=== PATIENT | female | born 1960 | race Caucasian/White ===

== ENCOUNTER 2017-04-23 23:19 | Emergency (ER) | payer BC ==
[2017-04-24 00:55] VITALS: BP 118/67
--- NOTE | 2017-04-24 07:44 | RAD ---
Indication: RIGHT ankle pain and swelling. Possible gout. Comparison: No relevant prior exams available on the [facility] for comparison. Technique: AP, mortise, and lateral views RIGHT ankle. Report: Normal articular alignment and preserved talocrural, subtalar, and transverse tarsal joint spaces. No suggestion of talocrural joint effusion. No significant osteophytosis or osseous erosions evident. Negative for fracture, osteochondral lesion, or stigmata of avascular necrosis. Nonfocal soft tissue swelling. Small phlebolith at the anterior distal lower leg. No suspicious soft tissue calcifications evident. IMPRESSION: Nonspecific soft tissue swelling.
--- NOTE | 2017-05-16 21:38 | ED ---
Osorio Tariq Nilda, scribed for Esau Paul MD on 04/24/17 at 0039 . Lower Extremity - HPI Summary HPI Summary: This patient is a 56 year old F presenting to [facility] accompanied by with a chief complaint of sharp right foot and ankle pain and swelling since this evening. 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 Symptoms aggravated by walking and alleviated by rest. Patient denies numbness and weakness in right foot. - History of Current Complaint Chief Complaint: EDExtremityLower Stated Complaint: RT ANKLE PAIN/SWELLING Time Seen by Provider: 04/24/17 00:10 Hx Obtained From: Patient Hx Last Menstrual Period: Currently menstruating Mechanism Of Injury: Other - job requires overuse Onset/Duration: Still Present Severity Currently: Mild Pain Intensity: 0 Pain Scale Used: 0-10 Numeric Timing: Constant Location: Is Discrete @ - right ankle and right foot pain Character Of Pain: Sharp Associated Signs And Symptoms: Positive: Swelling Aggravating Factor(s): Ambulation Alleviating Factor(s): Rest - Allergies/Home Medications Allergies/Adverse Reactions: Allergies Allergy/AdvReac Type Severity Reaction Status Date / Time Latex Allergy Unknown Verified 12/07/15 10:55 Reaction Details Yeast Allergy Unknown Verified 12/07/15 10:55 Reaction Details PMH/Surg Hx/FS Hx/Imm Hx Endocrine/Hematology History: Denies: Hx Diabetes, Hx Thyroid Disease Cardiovascular History: Denies: Hx Hypertension, Other Cardiovascular Problems/Disorders Respiratory History: Denies: Hx Asthma, Hx Chronic Obstructive Pulmonary Disease (COPD) GI History: Denies: Hx Ulcer - Cancer History Hx Chemotherapy: No Hx Radiation Therapy: No Infectious Disease History: No Infectious Disease History: Denies: Hx Hepatitis, Hx Human Immunodeficiency Virus (HIV), Traveled Outside the [place] in Last 30 Days - Family History Known Family History: Positive: Diabetes Negative: Hypertension - Social History Occupation: Employed Full-time Lives: With Family Alcohol Use: Rare Hx Substance Use: No Substance Use Type: Reports: None Hx Tobacco Use: Yes Smoking Status (MU): Former Smoker Review of Systems Positive: Other - right foot and ankle pain and swelling Negative: Weakness, Numbness All Other Systems Reviewed And Are Negative: Yes Physical Exam - Summary Physical Exam Summary: General: well-appearing, no pain distress, obese Skin: warm, color reflects adequate perfusion, dry Head: normal Eyes: EOMI, FRANCOIS ENT: normal Neck: supple, nontender Respiratory: CTA, breath sounds present Cardiovascular: RRR Abdomen: soft, nontender Bowel: present Musculoskeletal: strength/ROM intact, no warmth in right ankle and foot, good pulses, no plantar tenderness, minimal discomfort of dorsal flexion of the foot at tendons Neurological: normal, sensory/motor intact, A&O x3 Psychological: affect/mood appropriate Triage Information Reviewed: Yes Vital Signs On Initial Exam: Initial Vitals Temp Pulse Resp BP Pulse Ox 98.1 F 66 18 112/63 98 04/23/17 23:30 04/23/17 23:30 04/23/17 23:30 04/23/17 23:30 04/23/17 23:30 Vital Signs Reviewed: Yes - Gilman Coma Scale Coma Scale Total: 15 Diagnostics - Vital Signs Vital Signs Temp Pulse Resp BP Pulse Ox 04/23/17 23:30 98.1 F 66 18 112/63 98 - Laboratory Lab Statement: Any lab studies that have been ordered have been reviewed, and results considered in the medical decision making process. Lower Extremity Course/Dx - Course Course Of Treatment: tenderness over tendon area in top of foot. Tx symptomatically. Off load. RICE. - Diagnoses Provider Diagnoses: Tendonitis Discharge - Discharge Plan Condition: Good Disposition: HOME Prescriptions: Naproxen [Naproxen 500 mg] 500 mg PO BID #10 tab Patient Education Materials: Tendinitis (ED) Forms: *Work Release Referrals: Xochilt Livingston MD [Primary Care Provider] - Additional Instructions: Ice, elevate, Raul wrap for comfort. Stretching exercises. Return if worse, new symptoms or other concerns as discussed. The documentation as recorded by the Osorio alvarez Nilda accurately reflects the service I personally performed and the decisions made by , Esau Paul MD.
== END 2017-04-24 00:55 | disposition home or self-care (01) ==
LOC: ED 23:19
DX: M77.51 Other enthesopathy of right foot and ankle (principal); Z87.891 Personal history of nicotine dependence
CPT/HCPCS: 99282

== ENCOUNTER 2017-08-06 18:03 | Emergency (ER) | payer BC ==
--- OUTSIDE RECORDS SUMMARY | 2017-08-06 18:16 | XMS REPORT ---
:1960 External Reference #:[id number] Author Organization [facility] Address [address] [place] [address] Phone [phone] Care Team Providers Name Role Phone Xochilt Livingston M.D. 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 Active Onset: 06/22/2014 Acute gingivitis Cosmo Mcginnis M.D. 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 Sulfate/Polymyxin 2018 nit/ML-% drops in Miguel, B Sulfate left eye BALANCE CLERK 3 times per day until symptoms resolve for 24 hours. 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 10/12-2015 15. October between to work on 10/18/14 Cyclobenzaprine 10/12/ Hx Tablets 10mg 30tab 1 by SUSHIL Prabhakar 2014 - s mouth M.D. 01/03/ three 2015 times a day as needed Prednisone 10/12/ Hx Tablets 20mg 10tab 1 by Ayden Woodall 2014 - s mouth M.D. 01/03/ twice a 2015 day for 5 days Ceftin 06/23/ Hx Tablets 250mg 10tab 1 by Cosmo Longo 2014 - s mouth Ras, 07/02/ twice a M.D. 2014 day For 5 Days Work Excuse 06/23/ Hx unable to Cosmo Longo 2014 - work can Ras, 07/02/ return M.D. 2014 on 06/26/14 Penvk 06/22/ Hx 500 10uni use twice Cosmo Longo 2015 - ts a day x 5 Breiman, 06/23/ days M.D. 2014 Cyclobenzaprine 06/11/ Hx Tablets 10mg 30tab 1 by SUSHIL Prabhakar 2013 - s mouth M.D. 06/22/ three 2014 times a day as needed Hydrocodone-Aceta 06/11/ Hx Tablets 5-325mg 30tab 1 every 6 bud Prabhakar 2013 - s hours as M.D. 06/22/ needed 2014 Amoxicillin 06/07/ Hx Tablets 875mg 20tab 1 by 461.0 Kavitha 2013 - s mouth Dion, BALANCE CLERK 06/17/ twice a 2014 day x 10 days Work Excuse 06/02/ Hx seen in Adela 2013 Dilan Flores, 06/05/ office , Afnp-C 2013 will return to work 06/06/14 Tamiflu 05/24/ Hx Capsules 75mg 10cap 1 tab by 786.2 Iveth 2013 - s mouth Perry, 06/07/ twice a FAMILY MANAGER 2014 day x 5 days No Active 05/05/ Hx Unknown Medications 2012 - 2013 Dilotab 2- Sinus / Hx 325mgS/5mg 2 tabs Unknown And Cold Relief 0000 - S every 4 (Non Drowsy) 01/03/ hours as 2015 needed for s/s of cold Painaid( Apap, / Hx 110mgS/162 2 tabs Unknown Asa, Caffeine, 0000 - mgS/32.4MG every 6 Salicylamide) 01/03/ S... hours as 2015 needed for s/s of cold Naproxen / Hx Tablets 500mg 1 by Unknown 0000 - mouth 01/03/ twice a 2015 day as needed pain take with food Magnesium Citrate / Hx Tablets 100mg 1 by Unknown 0000 - mouth 01/03/ three 2016 times daily Vital Signs Date Vital Result Comment 08/01/2017 BP Systolic 108 mmHg BP Diastolic 60 mmHg Heart Rate 72 /min Body Temperature 98.5 F Respiratory Rate 16 /min Height 64 inches 5'4" Weight 223.12 lb BMI (Body Mass Index) 38.3 kg/m2 01/29/2017 BP Systolic 100 mmHg BP Diastolic 60 mmHg Heart Rate 66 /min Body Temperature 97.9 F Respiratory Rate 16 /min Height 64 inches 5'4" Weight 208.00 lb BMI (Body Mass Index) 35.7 kg/m2 01/04/2016 BP Systolic 120 mmHg BP Diastolic 80 mmHg Heart Rate 72 /min Body Temperature 97.7 F Respiratory Rate 16 /min Height 63.5 inches 5'3.50" Weight 210.00 lb BMI (Body Mass Index) 36.6 kg/m2 10/13/2014 BP Systolic 126 mmHg BP Diastolic 74 mmHg Heart Rate 64 /min Body Temperature 98.7 F Respiratory Rate 18 /min Height 63.5 inches 5'3.50" Weight 205.00 lb BMI (Body Mass Index) 35.7 kg/m2 07/02/2014 BP Systolic 100 mmHg BP Diastolic 60 mmHg Heart Rate 64 /min Body Temperature 97.7 F Height 63.5 inches 5'3.50" Weight 205.00 lb BMI (Body Mass Index) 35.7 kg/m2 06/22/2014 BP Systolic 126 mmHg BP Diastolic 80 mmHg Body Temperature 97.8 F Respiratory Rate 18 /min Height 63.5 inches 5'3.50" Weight 209.00 lb BMI (Body Mass Index) 36.4 kg/m2 06/12/2014 BP Systolic 124 mmHg BP Diastolic 70 mmHg Heart Rate 80 /min Body Temperature 98.3 F Respiratory Rate 18 /min Height 63.5 inches 5'3.50" Weight 203.00 lb BMI (Body Mass Index) 35.4 kg/m2 06/07/2014 BP Systolic 130 mmHg BP Diastolic 78 mmHg Heart Rate 66 /min Body Temperature 97.6 F Respiratory Rate 16 /min O2 % BldC Oximetry 98 % R/A 06/02/2014 BP Systolic 110 mmHg BP Diastolic 80 mmHg Heart Rate 80 /min Respiratory Rate 18 /min Height 63.5 inches 5'3.50" Weight 203.00 lb BMI (Body Mass Index) 35.4 kg/m2 05/24/2014 BP Systolic 114 mmHg BP Diastolic 68 mmHg Heart Rate 76 /min Body Temperature 99.9 F Respiratory Rate 18 /min O2 % BldC Oximetry 98 % Height 63.5 inches 5'3.50" Weight 206.00 lb BMI (Body Mass Index) 35.9 kg/m2 12/02/2013 BP Systolic 104 mmHg BP Diastolic 60 mmHg Heart Rate 68 /min Body Temperature 97.7 F Respiratory Rate 16 /min Height 63.5 inches 5'3.50" Weight 190.00 lb BMI (Body Mass Index) 33.1 kg/m2 05/05/2013 BP Systolic 100 mmHg BP Diastolic 62 mmHg Heart Rate 70 /min Body Temperature 96.6 F Height 63.5 inches 5'3.50" Weight 181.12 lb BMI (Body Mass Index) 31.6 kg/m2 Results Test Date Test Result H/L Range Note Laboratory test 04/05/2017 Surgical Interface SEE RESULT BELOW 1, 2 finding Order Ua - Micro (Fma) 01/29/2017 Appearance clear Color yellow Glucose, Urine (Fma/CMC/CTX) neg Bilirubin neg Ketones neg SP Grav >1.030 Blood moderate PH 5.0 Protein neg Urobil 0.2 Nitrite neg Leukocytes (Fma/CMC/Centrex) neg Hyaline - /Lpf Granular - /Lpf WBC (Fma,Centrex) 0-7 RBC 10-12 Mucus - /Lpf Epith rare /Lpf Bacteria - /Hpf Amorphous - /Lpf Crystals, Fluid (Fma/CMC/CTX) - Z#Comments - Complete Blood Count 01/29/2017 WBC 4.3 x10^3/UL 3.6-9.6 RBC 4.56 x10^6/UL 3.90-5.70 HGB 13.9 g/dL 12.1-17.2 HCT 41 % 36-50 MCV 90.0 fL 82.2-97.4 MCH 30.4 pg 27.6-33.3 MCHC 33.9 g/dL 33.0-35.5 RDW 15.0 % High 11.6-13.7 PLT 272 x10^3/UL 150-400 MPV 7.7 fL 7.4-10.4 Gran # 3.1 x10^3/UL 1.5-7.2 Lymph# 1.0 x10^3/UL 0.7-4.9 [place]# 0.2 x10^3/UL 0.1-0.9 Gran % 68.7 % 42.2-75.2 Lymph % 25.7 % 20.5-51.1 [place]% 5.6 % 1.7-9.3 Comprehensive Metabolic Prof 01/29/2017 Sodium 139 mEq/L 134-149 Potassium 4.4 mEq/L 3.6-5.5 Chloride 103 mEq/L 94-112 Carbon Dioxide 24 mEq/L 21-32 Glucose 102 mg/dL 70-105 BUN 18 mg/dL 6-26 Creatinine 0.7 mg/dL 0.6-1.4 BUN/Creat Ratio 25.7 CALC 8.0-36.0 Calcium 9.0 mg/dL 8.6-10.2 Total Protein 6.4 g/dL 6.4-8.3 Albumin 4.4 g/dL 3.8-5.5 Globulin 2.0 g/dL 2.0-4.8 A/G Ratio 2.2 CALC 0.6-2.3 Alk. Phosphatase 83 U/L 30-110 Alt (SGPT) 12 U/L 7-35 Ast (Sgot) 14 U/L 5-34 Total Bilirubin 0.7 mg/dL 0.2-1.3 GFR Non- >60 ml/min/1.73m^ >=60 GFR >60 ml/min/1.73m^ >=60 Lipid Profile 01/29/2017 Cholesterol 213 mg/dL High 120-200 Triglycerides 73 mg/dL 30-200 HDL Cholesterol 80 mg/dL 30-85 LDL (Calculated) 118 CALC 0-129 VLDL Cholesterol 15 mg/dL 0-50 HDL Risk Factor 2.7 CALC 0.0-4.4 Laboratory test 01/29/2017 TSH 1.06 mIU/L 0.50-6.00 finding Laboratory test 07/16/2016 Clotest SEE RESULT BELOW 3 finding Laboratory test 07/16/2016 Surgical Interface SEE RESULT BELOW 4 finding Order Ua - Micro (Fma) 01/04/2016 Appearance clear Color yellow Glucose, Urine (Fma/CMC/CTX) neg Bilirubin neg Ketones neg SP Grav 1.020 Blood neg PH 6.0 Protein neg Urobil 0.2 Nitrite neg Leukocytes (Fma/CMC/Centrex) neg Hyaline - /Lpf Granular - /Lpf WBC (Fma,Centrex) 0-2 RBC 0-1 Mucus (Fma/CBC/Centrex) - /Lpf Epith occ /Lpf Bacteria rare /Hpf Amorphous (Fma/CMC/Centrex) - /Lpf Crystals, Fluid (Fma/CMC/CTX) - Z#Comments - Laboratory test 01/04/2016 Urine Culture And SEE RESULT 5 finding Sensitivities BELOW CBC Auto Diff 06/09/2014 White Blood Count 11.0 10^3/uL High 4.8-10.8 Red Blood Count 4.43 10^6/uL 4.0-5.4 Hemoglobin 13.7 g/dL 12.0-16.0 Hematocrit 42 % 35-47 Mean Corpuscular Volume 94 fL 80-97 Mean Corpuscular Hemoglobin 31 pg 27-31 Mean Corpuscular HGB Conc 33 g/dL 31-36 Red Cell Distribution Width 14 % 10.5-15 Platelet Count 276 10^3/uL 150-450 Mean Platelet Volume 10 um3 7.4-10.4 Abs Neutrophils 8.8 10^3/uL High 1.5-7.7 Abs Lymphocytes 1.5 10^3/uL 1.0-4.8 Abs Monocytes 0.6 10^3/uL 0-0.8 Abs Eosinophils 0.1 10^3/uL 0-0.6 Abs Basophils 0.1 10^3/uL 0-0.2 Abs Nucleated RBC 0 10^3/uL Granulocyte % 80.0 % 38-83 Lymphocyte % 13.4 % Low 25-47 Monocyte % 5.0 % 1-9 Eosinophil % 0.9 % 0-6 Basophil % 0.7 % 0-2 Nucleated Red Blood Cells % 0 Laboratory test finding 06/09/2014 Lactic Acid 1.0 mmol/L 0.5-2.2 Comp Metabolic Panel 06/09/2014 Sodium 134 mmol/L 133-145 Potassium 4.3 mmol/L 3.5-5.0 Chloride 103 mmol/L 101-111 Co2 Carbon Dioxide 25 mmol/L 22-32 Anion Gap 6 mmol/L 2-11 Glucose 110 mg/dL High 70-100 Blood Urea Nitrogen 12 mg/dL 6-24 Creatinine 0.60 mg/dL 0.51-0.95 BUN/Creatinine Ratio 20.0 8-20 Calcium 8.9 mg/dL 8.6-10.3 Total Protein 6.6 g/dL 6.4-8.9 Albumin 3.8 g/dL 3.2-5.2 Globulin 2.8 g/dL 2-4 Albumin/Globulin Ratio 1.4 1-3 Total Bilirubin 0.50 mg/dL 0.2-1.0 Alkaline Phosphatase 54 U/L 34-104 Alt 11 U/L 7-52 Ast 15 U/L 13-39 Egfr Non- 104.6 >60 Egfr 134.5 >60 6 Inr/Protime 06/09/2014 Inr 0.93 0.85-1.06 Laboratory test finding 06/09/2014 Activated Partial 29.9 seconds 24.0- 36.1 Thrombo Time Influenza A&B-[facility] 05/24/2014 Influenza A pos Influenza B neg CBC Electronic ([facility]) 05/05/2013 WBC 6.5 3.6-9.6 RBC 4.45 3.90-5.70 Hemoglobin (a/CMC/CTX) 14.0 g/dL 12.1 - 17.2 Hematocrit (a/CMC/CTX) 42.4 % 36.1 - 50.3 Platelets 298 10^3/ul 150-400 Lymph% 24.2 20.5-51.1 Mixed% 3.4 Neutrophils % 72.4 Mean Corpuscular Vol 95 82.2-97.4 Mean Corpuscular Hemoglobin 31.6 27.6-33.3 Mean Corpuscular Hemo Concen 33.1 32.0-36.0 RDW 12.6 11.6-13.7 Mean Platelet Volume 7.9 6.5-11.0 Ua - Micro (Fma) 05/05/2013 Appearance clear Color yellow Glucose 100 mg/dL Bilirubin neg Ketones neg SP Grav 1.025 Blood large menses PH 6.5 Protein ssa neg Urobil 1.0 Nitrite neg Leukocytes (Fma/CMC/Centrex) small Hyaline - /Lpf Granular - /Lpf WBC (Fma,Centrex) 20-25 RBC 1-4 Mucus - /Lpf Epith mod amt /Lpf Bacteria 2++ /Hpf Amorphous - /Lpf Crystals, Fluid (Fma/CMC/CTX) - Z#Comments see comments 7 Laboratory test finding 05/05/2013 Vitamin D,1,25 46.3 pg/mL 10.0-75.0 Dihydro Comprehensive Metabolic Prof 05/05/2013 Albumin 4.7 g/dL 3.8-5.5 Alk. Phos. 72 U/L 30-110 Alt (SGPT) 12 U/L 7-35 Ast (Sgot) 17 U/L 5-34 BUN 16 mg/dL 6-26 Calcium 10.2 mg/dL 8.6-10.2 Chloride 104 mEq/L 94-112 Creatinine 0.8 mg/dL 0.6-1.4 Carbon Dioxide 26 mEq/L 21-32 Glucose 94 mg/dL 70-105 Sodium 146 mEq/L 134-149 Total Bilirubin 1.0 mg/dL 0.2-1.3 Total Protein 7.3 g/dL 6.3-8.1 Potassium 4.5 mEq/L 3.6-5.5 Globulin 2.6 g/dL 2.0-4.8 A/G Ratio 1.8 Calc 0.6-2.3 BUN/Creat Ratio 19.8 Calc 8.0-36.0 Lipid Profile 05/05/2013 Cholesterol 227 mg/dL High 120-200 HDL 85 mg/dL 30-85 Triglycerides 68 mg/dL 30-200 HDL Risk Factor 2.7 CALC 0.0-4.4 LDL (Calculated) 128 CALC 0-129 VLDL (Calculated) 14 mg/dL 0-50 1 [id number] 2 SEE RESULT BELOW Name: CYNTHIA AZAR : [address]: Navin Bah MD Acct: [id number] Unit: [id number] AGE: 56 Location: [facility] Re04/05/17 SEX: F Status: DEP REF SPEC: [id number] TANA: 04/05/[address] [facility] [address]: Navin Bah MD REQ: [id number] RECD: 04/05/17 STATUS: KALEE LINTON DR: Xochilt Livingston MD _ ORDERED: LEVEL 4 COMMENTS: [id number] FINAL DIAGNOSIS Gastroesophageal junction, biopsy: -- Gastric Cardia-type mucosa with mild chronic inflammation and reactive glandular epithelial changes. -- No goblet cell/intestinal metaplasia or dysplasia identified. -- No squamous component identified. CLINICAL HISTORY No history given POST-OPERATIVE DIAGNOSIS Esophagus - Grade B/C erosive esophagitis, nodule at gastroesophageal junction, biopsied; stomach and duodenum - normal. Patient refusing proton pump inhibitor GROSS DESCRIPTION The specimen is received in formalin labeled, Biopsy EG Junction, and consists of a 0.4 x 0.3 x 0.2 cm eddy-white to pink irregular soft tissue fragment which is submitted entirely in one cassette. Signed (signature on file) Mario Perez MD 1155 END OF REPORT * ML=Testing performed at Main Lab DEPARTMENT OF PATHOLOGY, [address] [place] [address] Mario Perez M.D. Director [facility] # [id number] 3 SEE RESULT BELOW Name: CYNTHIA AZAR : [address]: Navin Bah MD Acct: [id number] Unit: [id number] AGE: 55 Location: ENDO Re07/16/16 SEX: F Status: REG REF SPEC: [id number] TANA: 07/16/16-[address] [facility] [address]: Navin Bah MD REQ: [id number] RECD: 07/16/16133 STATUS: JACKIE LINTON DR: Xochilt Livingston MD _ SOURCE: GAS ANTRUM SPDESC: ORDERED: Clotest Procedure Result Reported Site Clotest Final 07/17/16- 801 ML Clotest Negative * ML - MAIN LAB ([facility]) . END OF REPORT * ML=Testing performed at Main Lab DEPARTMENT OF PATHOLOGY, [address] [place] [address] Mario Perez M.D. Director [facility] # [id number] 4 SEE RESULT BELOW Name: NEREIDA AZAROINETTE : [address]: Navin Bah MD Acct: [id number] Unit: [id number] AGE: 55 Location: ENDO Re07/16/16 SEX: F Status: DEP REF SPEC: [id number] TANA: 07/16/169475 [facility] DR: Navin Bah MD REQ: [id number] RECD: 07/16/16 STATUS: KALEE LINTON DR: Xochilt Livingston MD _ ORDERED: LEVEL IV/2 FINAL DIAGNOSIS 1. Small bowel, duodenum, biopsy: -- Small bowel mucosa with reactive foveolar hyperplasia and normal villous architecture. -- No infectious agents or viral pathologic changes identified. 2. Esophagus, biopsies: -- Superficial squamous mucosa with mild nonspecific reactive changes. -- Specific features of active reflux esophagitis or not seen. -- No glandular component is identified. CLINICAL HISTORY No history given POST-OPERATIVE DIAGNOSIS Esophagus - rings - ? erosive esophagitis; hiatal hernia, Grade C erosive esophagitis; stomach - normal, biopsied; duodenum - duodenitis, biopsied. Colonoscopy to splenic flexure - severe diverticulosis, severe angulation, secondary adhesions. Start proton pump inhibitor GROSS DESCRIPTION 1. The specimen is received in formalin labeled, Duodenal Biopsies, and consists of a 0.4 x 0.2 x 0.2 cm speckled eddy-red irregular to polypoid soft tissue fragment, which is entirely submitted in one cassette. 2. The specimen is received in formalin labeled, Esophagus Biopsies, and consists of two white-pink irregular to polypoid soft tissue fragments averaging 0.4 x 0.3 x 0.2 cm, which are entirely submitted in one cassette. Signed (signature on file) Mario Perez MD 1242 END OF REPORT * ML=Testing performed at Main Lab DEPARTMENT OF PATHOLOGY, [address] [place] [address] Mario Perez M.D. Director [facility] # [id number] 5 SEE RESULT BELOW Name: CYNTHIA AZAR : [address]: Toro Keane MD Acct: [id number] Unit: [id number] AGE: 55 Location: [facility] Re01/04/16 SEX: F Status: REG REF SPEC: [id number] TANA: 01/04/16-[address] [facility] [address]: Toro Keane MD REQ: [id number] RECD: 01/04/16 STATUS: COMP _ SOURCE: URINE SPDESC: ORDERED: Urine Culture COMMENTS: [id number] 1 cohn urine vacutainer Procedure Result Reported Site Urine Culture Final 01/06/16- 09 ML No Growth (<1,000 CFU/mL) * ML - MAIN LAB ([facility]) . END OF REPORT * ML=Testing performed at Main Lab DEPARTMENT OF PATHOLOGY, [address] [place] [address] Mario Perez M.D. Director [facility] # [id number] 6 Because ethnic data is not always readily available, this report includes an eGFR for both -Americans and non- Americans. The National Kidney Disease Education Program (NKDEP) does not endorse the use of the MDRD equation for patients that are not between the ages of 18 and 70, are , have extremes of body size, muscle mass, or nutritional status, or are non- or non-. According to the National Kidney Foundation, irrespective of diagnosis, the stage of the disease is based on the level of kidney function: Stage Description GFR(mL/min/1.73 m(2)) 1 Kidney damage with normal or decreased GFR 90 2 Kidney damage with mild decrease in GFR 60-89 3 Moderate decrease in GFR 30-59 4 Severe decrease in GFR 15-29 5 Kidney failure <15 (or dialysis) 7 not a clean catch Procedures Date CPT Code Description Status 07/16/2016 Colonoscopy Completed 06/06/2016 Mammogram Completed 06/07/2014 69340 Pulse Oximetry Completed 06/02/2013 Colonoscopy Completed Encounters Type Date Location Provider CPT E/M Dx Office Visit 01/29/2017 9:20a [facility] Xochilt Livingston M.D. 58514 Z00.00 C54.1 Z15.09 Z12.31 R31.29 Office Visit 01/04/2016 1:50p [facility] Toro Keane M.D. 50538 R31.2 Office Visit 10/13/2014 3:00p [facility] Office Ayden Woodall M.D. 50457 724.2 Office Visit 07/02/2014 10:00a [facility] Ayden Woodall M.D. 65761 487.8 Office Visit 06/22/2014 1:10p [facility] Office Cosmo Mcginnis M.D. 63717 523.01 Office Visit 06/12/2014 10:15a [place] [address] 724.2 Office Visit 06/07/2014 2:30p [facility] [place] [address] 461.0 Office Visit 06/02/2014 6:45p Main Office Jessica Gusman-C 02701 487.8 Office Visit 05/24/2014 1:15p [facility] LEANDRA Trejo 14010 786.2 465.9 Office Visit 05/05/2013 9:00a [facility] Office Ayden Woodall M.D. 23325 V70.0 791.7 Plan of Care 08/01/2017 - Liliane Rivera, NPH10.9 Unspecified conjunctivitisNew Medication :Trimethoprim Sulfate/Polymyxin B Sulfate 71713-6.1 Unit/ML-%Comments:Call [facility]IRA if condition changes/worsens in any way
--- OUTSIDE RECORDS SUMMARY | 2017-08-06 18:16 | XMS REPORT ---
:1960 External Reference #:[id number] Author Organization [facility] Address [address] [place] [address] Phone [phone] Care Team Providers Name Role Phone Xochilt Livingston M.D. 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 Sulfate/Polymyxin 2018 nit/ML-% drops in Miguel, Alexandra Sulfate left eye REFERRAL AND INFORMATION AIDE 3 times per day until symptoms resolve for 24 hours. 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 10/12-2015 to work on 10/18/14 Cyclobenzaprine 10/12/ Hx [...] 2014 day For 5 Days Work Excuse Hx unable to Cosmo Longo 2014 - [...] by 461.0 Kavitha 2013 - s mouth CRISPIN Ashley 06/17/ twice a 2014 day x 10 days Work Excuse 06/02/ Hx seen in Adela 2014 - this Tusharidterri, 06/05/ office , Afnp-C 2013 will return to work 06/06/14 Tamiflu 05/24/ Hx Capsules 75mg 10cap 1 tab by 786.2 Iveth 2013 - s mouth Perry, 06/07/ twice a [employer] SUPER[employer] 2013 day x 5 days No Active 05/05/ [...] Unknown 0000 - mouth 01/03/ twice a 2016 day as needed pain take with food Magnesium Citrate / Hx Tablets 100mg 1 by Unknown 0000 - mouth 01/03/ three 2016 times daily Vital Signs Date Vital Result Comment 08/06/2017 BP Systolic 96 mmHg BP Diastolic 60 mmHg Heart Rate 64 /min Body Temperature 98.4 F Weight 223.50 lb 08/01/2017 BP Systolic 108 mmHg BP Diastolic [...] 3.1 x10^3/UL 1.5-7.2 Lymph# 1.0 x10^3/UL 0.7-4.9 [place]# 0.2 x10^3/UL 0.1-0.9 Gran % 68.7 % 42.2-75.2 Lymph % 25.7 % 20.5-51.1 [place]% 5.6 % 1.7-9.3 Comprehensive Metabolic Prof 01/29/2017 [...] 29.9 seconds 24.0- 36.1 Thrombo Time Influenza A&B-fma 05/24/2014 Influenza A pos Influenza B neg CBC Electronic (Fma) 05/05/2013 WBC 6.5 3.6-9.6 RBC 4.45 3.90-5.70 Hemoglobin (Fma/CMC/CTX) 14.0 g/dL 12.1 - 17.2 Hematocrit (Fma/CMC/CTX) 42.4 % 36.1 - 50.3 Platelets 298 [...] Hyaline - /Lpf Granular - /Lpf WBC (a,Centrex) 20-25 RBC 1-4 Mucus - /Lpf Epith [...] 0-129 VLDL (Calculated) 14 mg/dL 0-50 1 [id number] 2 SEE RESULT BELOW Name: CYNTHIA AZAR : [address]: Navin Bah MD Acct: [id number] Unit: [id number] AGE: 56 Location: END[facility] Re04/05/17 SEX: F Status: DEP REF SPEC: [id number] TANA: 04/05/1736 [facility] DR: Navin Bah MD REQ: [id number] RECD: 04/05/17 STATUS: KALEE LINTON DR: Xochilt Livingston MD _ ORDERED: LEVEL 4 COMMENTS: [id number] FINAL DIAGNOSIS Gastroesophageal junction, biopsy: -- Gastric [...] performed at Main Lab DEPARTMENT OF PATHOLOGY, [address] [place] [address] Mario Perez M.D. Director [facility] # [id number] 3 SEE RESULT BELOW Name: CYNTHIA AZAR : [address]: Navin Bah MD Acct: [id number] Unit: [id number] AGE: 55 Location: ENDO Re07/16/16 SEX: F Status: REG REF SPEC: [id number] TANA: 07/16/16-1346 [facility] DR: Navin Bah MD REQ: [id number] RECD: 07/16/16 STATUS: JACKIE COREAS DR: Xochilt Livingston MD _ SOURCE: [facility]: ORDERED: Clotest Procedure Result Reported Site Clotest Final 07/17/16- 801 ML Clotest Negative * ML - MAIN LAB ([facility]) . END OF REPORT * ML=Testing performed at Main Lab DEPARTMENT OF PATHOLOGY, [address] [place] [address] Mario Perez M.D. Director [facility] # [id number] 4 SEE RESULT BELOW Name: CYNTHIA AZAR : [address]: Navin Bah MD Acct: [id number] Unit: [id number] AGE: 55 Location: ENDO Re07/16/16 SEX: F Status: DEP REF SPEC: [id number] TANA: 07/16/16-[address]: Navin Bah MD REQ: [id number] RECD: 07/16/16-1528 STATUS: KALEE LINTON DR: Xochilt Livingston MD [...] one cassette. Signed (signature on file) Mario Sudilovsky, MD [id number] END OF REPORT * ML=Testing performed at Main Lab DEPARTMENT OF PATHOLOGY, [address] [place] [address] Mario Perez M.D. Director [facility] # [id number] 5 SEE RESULT BELOW Name: CYNTHIA AZAR : [address]: Toro Keane MD Acct: [id number] Unit: [id number] AGE: 55 Location: [facility] Re01/04/16 SEX: F Status: REG REF SPEC: [id number] TANA: 01/04/16-[address]: Toro Keane MD REQ: [id number] RECD: 01/04/16 STATUS: COMP _ SOURCE: URINE SPDESC: ORDERED: Urine Culture COMMENTS: [id number] 1 cohn urine vacutainer Procedure Result Reported Site Urine Culture Final 01/06/16- 903 ML No Growth (<1,000 CFU/mL) * ML - MAIN LAB ([facility]) . END OF REPORT * ML=Testing performed at Main Lab DEPARTMENT OF PATHOLOGY, [address] [place] [address] Mario Perez M.D. Director [facility] # [id number] 6 Because ethnic data is not always [...] 07/16/2016 Colonoscopy Completed 06/06/2016 Mammogram Completed 06/07/2014 15899 Pulse Oximetry Completed 06/02/2013 Colonoscopy Completed Encounters Type Date Location Provider CPT E/M Dx Office Visit 08/01/2017 11:15a [place] [address] H10.9 Office Visit 01/29/2017 9:20a [facility] Xochilt Livingston M.D. 73380 Z00.00 C54.1 Z15.09 Z12.31 R31.29 Office Visit 01/04/2016 1:50p [facility] Toro Keane M.D. 48983 R31.2 Office Visit 10/13/2014 3:00p Main Office Ayden Woodall M.D. 57470 724.2 Office Visit 07/02/2014 10:00a [facility] Ayden Woodall M.D. 56288 487.8 Office Visit 06/22/2014 1:10p [facility] Cosmo Mcginnis M.D. 66821 523.01 Office Visit 06/12/2014 10:15a [place] [address] 724.2 Office Visit 06/07/2014 2:30p [place] [address] 461.0 Office Visit 06/02/2014 6:45p Main Office Shawn Gusman 52230 487.8 Office Visit 05/24/2014 1:15p [facility] LEANDRA Trejo 64100 786.2 465.9 Office Visit 05/05/2013 9:00a [facility] Ayden Woodall M.D. 94089 V70.0 791.7 Plan of Care 08/06/2017 - Jessica Gusman-CR11.0 MttawpS47.7 Diarrhea, unspecifiedFollow up:Followup:. (Follow up)R05 CoughFollow up:Followup:. ( Follow up)AllComments:~B_~U_Medication Management~b_~u_ Patient Understands medications she's taking? Yes No no routine meds Are there Barriers to Adherence? Yes No na Has the patient been asked about herbal supplements and therapies, and OTC meds? Yes No ~B_~U_Care Plan~b_~u_1. Patient has beenqueried about patient's goals/preferences and functional/ lifestyle goals at relevant visits. If relevant, describe: na2. Treatment goals as explained to the patient: abovesx rx and resolution 3. Arethere barriers to meeting treatment goals? Yes No declined flu rx based on exposure and sx , we were down to 2 tests in the office and I did not feel this situation warrented a flu test If Yes, please describe:4. Self-Management goals as described to the patient: Yes No sx rx: fluids , soothing teas, rest and observation call if no better 7-10 days or if sx worsen
--- NOTE | 2017-08-06 20:50 | ED ---
Influenza-Like Illness - HPI Summary HPI Summary: 56 female presents to ED with requests of having flu swab preformed. Patient states her is very ill and she wants to make sure they are not passing flu back and forth. Admits to low grade fever and feeling ill "run down" for a few hours this morning. Has since felt slightly better. Coughing minimally, nonproductive and with little congestion. Denies any other complaints at this time. No PMHx. - History of Current Complaint Chief Complaint: EDFluSymptoms Time Seen by Provider: 08/06/17 18:47 Hx Obtained From: Patient Onset/Duration: Sudden Onset, Lasting Hours, Still Present, Resolved - "improving" Severity: Mild Associated Signs & Symptoms: Fever - low grade 99-100F, Myalgia, Cough - minimal , Nasal Congestion, Headache - Allergy/Home Medications Allergies/Adverse Reactions: Allergies Allergy/AdvReac Type Severity Reaction Status Date / Time MS Latex [Latex] Allergy Unknown Verified 12/07/15 10:55 Reaction Details MS Yeast [Yeast] Allergy Unknown Verified 12/07/15 10:55 Reaction Details PMH/Surg Hx/FS Hx/Imm Hx Endocrine/Hematology History: Denies: Hx Diabetes, Hx Thyroid Disease Cardiovascular History: Denies: Hx Hypertension, Other Cardiovascular Problems/Disorders Respiratory History: Denies: Hx Asthma, Hx Chronic Obstructive Pulmonary Disease (COPD) GI History: Denies: Hx Ulcer - Cancer History Hx Chemotherapy: No Hx Radiation Therapy: No - Surgical History Surgery Procedure, Year, and Place: n/a - Immunization History Date of Influenza Vaccine: NO Immunizations Up to Date: Yes Infectious Disease History: No Infectious Disease History: Denies: Hx Hepatitis, Hx Human Immunodeficiency Virus (HIV), Traveled Outside the [place] in Last 30 Days - Family History Known Family History: Positive: None, Unknown, Diabetes Negative: Hypertension - Social History Alcohol Use: Rare Hx Substance Use: No Substance Use Type: Reports: None Hx Tobacco Use: Yes Smoking Status (MU): Former Smoker Review of Systems Constitutional: Negative Positive: Nasal Discharge Cardiovascular: Negative Positive: Cough Gastrointestinal: Negative Positive: Myalgia Positive: Headache All Other Systems Reviewed And Are Negative: Yes Physical Exam Triage Information Reviewed: Yes Vital Signs On Initial Exam: Initial Vitals Temp Pulse Resp BP Pulse Ox 99.5 F 94 18 118/66 98 08/06/17 18:06 08/06/17 18:06 08/06/17 18:06 08/06/17 18:06 08/06/17 18:06 Vital Signs Reviewed: Yes Appearance: Positive: Well-Appearing, No Pain Distress, Well-Nourished Skin: Positive: Warm, Skin Color Reflects Adequate Perfusion, Dry. Negative: Cold, Numb, Cyanosis @, Erythema @ Head/Face: Positive: Normal Head/Face Inspection Eyes: Positive: Conjunctiva Clear ENT: Positive: Hearing grossly normal, Pharynx normal, Nasal congestion, TMs normal, Uvula midline. Negative: Tonsillar swelling, Tonsillar exudate, Sinus tenderness Neck: Positive: Supple, Nontender, No Lymphadenopathy Respiratory/Lung Sounds: Positive: Clear to Auscultation, Breath Sounds Present. Negative: Decreased Breath Sounds, Rales, Rhonchi, Wheezes Cardiovascular: Positive: Normal, RRR, Pulses are Symmetrical in both Upper and Lower Extremities. Negative: Murmur, Rub Abdomen Description: Positive: Nontender, Soft Bowel Sounds: Positive: Present Musculoskeletal: Positive: Normal, Strength/ROM Intact Neurological: Positive: Normal, Sensory/Motor Intact, Alert, Oriented to Person Place, Time Diagnostics - Vital Signs Vital Signs Temp Pulse Resp BP Pulse Ox 08/06/17 18:06 99.5 F 94 18 118/66 98 - Laboratory Lab Results: Lab Results 08/06/17 Range/Units 18:25 Influenza A (Rapid) Negative (Negative) Influenza B (Rapid) Negative (Negative) Lab Statement: Any lab studies that have been ordered have been reviewed, and results considered in the medical decision making process. Flu Symptom Course/Dx - Course Course Of Treatment: influenza culture obtained and negative. no other concerns at this time. appears to possibly be a viral illness. follow up with pcp, fluids, rest, and vitamins. ibu/tylenol for headache/fevers. patient agrees and understands plan - Diagnoses Differential Diagnosis/HQI/PQRI: Positive: Influenza, Pneumonia, Upper Respiratory Infection, Other - viral illness Provider Diagnoses: Viral syndrome Discharge - Discharge Plan Condition: Stable Disposition: HOME Patient Education Materials: Viral Syndrome (ED) Referrals: Xochilt Livingston MD [Primary Care Provider] - Additional Instructions: Increase fluid intake, get plenty of rest. Wash hands frequently. Ibuprofen/tylenol for fever and discomfort.
[2017-08-06 21:25] VITALS: BP 119/87
== END 2017-08-06 21:13 | disposition home or self-care (01) ==
LOC: ED 18:03
DX: B34.9 Viral infection, unspecified (principal); Z87.891 Personal history of nicotine dependence
CPT/HCPCS: 87502; 99282

== ENCOUNTER 2019-04-27 12:54 | Emergency (ER) | payer SELFPAY ==
[2019-04-27] MEDS ORDERED: HYDROcodone/ACETAMIN 5-325 MG* 1 TAB PO ONE (13:38)
--- NOTE | 2019-04-27 14:41 | ED ---
Lower Extremity - HPI Summary HPI Summary: 58-year-old female with no significant past medical history presents to the emergency department with a chief complaint of right ankle pain. She states she missed a step earlier this morning and rolled her right ankle. She states she has fractured this ankle in the past. She reports 10 out of 10 pain to the lateral aspect of her right ankle and states she is unable to ambulate on her own and was unable to ambulate after this occurred. She reports no numbness or tingling or pain in her knee. She is not taking any medication prior to arrival for alleviation of her symptoms. Patient denies use of blood thinners or any bleeding disorders. Patient has decreased range of motion of the right ankle due to pain. She has no other complaints at this time. She denies hitting her head or any other trauma as a result of the accident this morning. Patient denies fever, chest pain, abdominal pain, shortness of breath. - History of Current Complaint Chief Complaint: EDExtremityLower Stated Complaint: RIGHT ANKLE INJURY PER PT Time Seen by Provider: 04/27/19 13:00 Hx Obtained From: Patient, Family/Javascript Developer - is at the bedside Hx Last Menstrual Period: Currently menstruating Mechanism Of Injury: Fall From A Standing Position - Slipped on stairs Onset of Pain: Immediate Onset/Duration: Hours Severity Initially: Severe - Occurred this morning Severity Currently: Severe Pain Intensity: 10 Pain Scale Used: 0-10 Numeric Timing: Constant Location: Is Discrete @ - Right ankle lateral aspect Character Of Pain: Aching Associated Signs And Symptoms: Positive: Swelling. Negative: Redness, Bruising , Knee Pain Aggravating Factor(s): Standing, Ambulation, Movement, Weight Bearing Alleviating Factor(s): Rest, Ice Able to Bear Weight: Yes - Allergies/Home Medications Allergies/Adverse Reactions: Allergies Allergy/AdvReac Type Severity Reaction Status Date / Time latex Allergy Itching Verified 04/27/19 12:58 Yeast Allergy Rash Verified 04/27/19 12:58 PMH/Surg Hx/FS Hx/Imm Hx Endocrine/Hematology History: Denies: Hx Diabetes, Hx Thyroid Disease Cardiovascular History: Denies: Hx Hypertension, Other Cardiovascular Problems/Disorders Respiratory History: Denies: Hx Asthma, Hx Chronic Obstructive Pulmonary Disease (COPD) GI History: Denies: Hx Ulcer - Cancer History Hx Chemotherapy: No Hx Radiation Therapy: Yes - UTERINE CANCER, 2016 - Surgical History Surgery Procedure, Year, and Place: n/a - Immunization History Date of Influenza Vaccine: NO Infectious Disease History: No Infectious Disease History: Denies: Hx Hepatitis, Hx Human Immunodeficiency Virus (HIV), Traveled Outside the [place] in Last 30 Days - Family History Known Family History: Positive: None, Unknown, Diabetes Negative: Hypertension - Social History Alcohol Use: Rare Hx Substance Use: No Substance Use Type: Reports: None Hx Tobacco Use: Yes Smoking Status (MU): Former Smoker Review of Systems Constitutional: Negative Cardiovascular: Negative Respiratory: Negative Positive: Arthralgia, Edema Skin: Negative Psychological: Normal All Other Systems Reviewed And Are Negative: Yes Physical Exam Triage Information Reviewed: No Vital Signs On Initial Exam: Initial Vitals Temp Pulse Resp BP Pulse Ox 96.4 F 56 18 118/69 99 04/27/19 12:56 04/27/19 12:56 04/27/19 12:56 04/27/19 12:56 04/27/19 12:56 Vital Signs Reviewed: No Appearance: Positive: Well-Appearing, Well-Nourished, Pain Distress, Obese Skin: Positive: Warm, Skin Color Reflects Adequate Perfusion Head/Face: Positive: Normal Head/Face Inspection Eyes: Positive: Normal, EOMI ENT: Positive: Hearing grossly normal Respiratory/Lung Sounds: Positive: Clear to Auscultation, Breath Sounds Present Cardiovascular: Positive: Normal, RRR, S1, S2 Musculoskeletal: Positive: Pain @ - Lateral aspect of the right ankle. Pain is made worse with movement., Edema Right - Edema noted to right ankle lateral aspect, Other - Dorsalis pedis pulse 2+ bilaterally posterior tibialis pulse 2+ bilaterally. Range of motion is decreased due to pain. No pain to palpation of the proximal tibia or fibula. No pain with the medial malleoli but she does endorse pain palpation to the lateral malleolus and talus bone. Psychiatric: Positive: Normal AVPU Assessment: Alert Procedures - Sedation Patient Received Moderate/Deep Sedation with Procedure: No Diagnostics - Vital Signs Vital Signs Temp Pulse Resp BP Pulse Ox 04/27/19 12:56 96.4 F 56 18 118/69 99 - Laboratory Lab Statement: Any lab studies that have been ordered have been reviewed, and results considered in the medical decision making process. Lower Extremity Course/Dx - Course Course Of Treatment: Patient was evaluated in the emergency department for right ankle pain after falling this morning. She was seen and evaluated. She was given 5 mg of hydrocodone and 325 mg of acetaminophen for her acute pain. X -ray of the right ankle revealed no signs of acute fracture recommended further imaging if her symptoms persist for longer than expected. She was diagnosed with a right ankle sprain and given an ankle stirrup and crutches and told to follow up with her primary care provider in 2-3 days for further evaluation. She is given instructions on how to care for her ankle and reduce pain and swelling. Patient agreed with the plan and was stable during the entirety of her stay. She was told to return the emergency Department if her symptoms worsen or she develops any new symptoms. - Diagnoses Differential Diagnosis/HQI/PQRI: Positive: Fracture (Closed), Gout, Sprain, Strain, Tendonitis Provider Diagnoses: Right ankle sprain Discharge ED - Sign-Out/Discharge Documenting (check all that apply): Patient Departure - Discharge Plan Condition: Stable Disposition: HOME Prescriptions: traMADol TAB* [Ultram*] 50 mg PO Q6HR PRN #8 tab MDD 4 tabs PRN Reason: Pain Patient Education Materials: Ankle Sprain (ED) Forms: *Work Release Referrals: Xochilt Livingston MD [Primary Care Provider] - Additional Instructions: You were seen in the emergency department today for a sprained ankle. An x-ray was done and showed no evidence of an acute fracture however if your symptoms persist for longer than 2 weeks please seek reevaluation by your primary care provider. Follow-up with orthopedics or your primary care provider within 2-3 days for reevaluation of your injury. For alleviation of symptoms apply ice to the ankle for 30 minutes on and 30 minutes off throughout the day. Elevation of the ankle to help reduce swelling especially during sleep. you may take 600 mg of ibuprofen every 6 hours for pain for one week. If your symptoms worsen or you develop any new symptoms please return to the emergency department immediately. Weight-bear as tolerated. Return to activity as tolerated. - Billing Disposition and Condition Condition: STABLE Disposition: Home
[2019-04-27 14:51] VITALS: BP 126/71
== END 2019-04-27 14:50 | disposition home or self-care (01) ==
LOC: ED 12:54
DX: S93.401A Sprain of unspecified ligament of right ankle, initial encounter (principal); X50.9XXA Other and unspecified overexertion or strenuous movements or postures, initial encounter; Y92.9 Unspecified place or not applicable; Z87.891 Personal history of nicotine dependence; Z91.040 Latex allergy status
CPT/HCPCS: 99282

== ENCOUNTER 2022-08-26 07:48 | Inpatient (IN) ==
[2022-08-26] MEDS ORDERED: Lactated Ringers 1000 ml BAG 1,000 ML IV ONE ×2 (07:56→08:30)
[2022-08-26 08:28] LABS: ABS Basophils 0.1 10^3/ul (0-0.2); ABS Eosinophils 0.1 10^3/ul (0-0.6); ABS Lymphocytes 3.1 10^3/ul (1.0-4.8); ABS Monocytes 0.5 10^3/ul (0-0.8); ABS Neutrophils 4.7 10^3/ul (1.5-7.7); Eosinophil % 1.6 %; Hematocrit 46 % (35-47); Lymphocyte % 36.6 %; Mean Corpuscular HGB Conc 33 g/dL (31-36); Mean Corpuscular Hemoglobin 30 pg (27-31); Mean Corpuscular Volume 91 fL (80-97); Mean Platelet Volume 10.2 fL (7.4-10.4); Nucleated Red Blood Cells % 0.1; Platelet Count 280 10^3/uL (150-450); Red Blood Count 5.08 10^6 /uL (3.70-4.87); Red Cell Distribution Width 15 % (10-15); White Blood Count 8.4 10^3/uL (3.5-10.8)
[2022-08-26 08:50] LABS: Albumin 4.2 g/dL (3.2-5.2); Albumin/Globulin Ratio 1.7 (1-3); Calcium 10.1 mg/dL (8.6-10.3); Creatinine, Serum 0.83 mg/dL (0.51-0.95); Globulin 2.5 g/dL (2-4); Magnesium 1.9 mg/dL (1.9-2.7); Total Bilirubin 0.6 mg/dL (0.2-1.0); Total Protein 6.7 g/dL (6.4-8.9); eGFR CKD-EPI 80.2 (>60)
[2022-08-26 08:53] LABS: INR 0.98 (0.88-1.18)
[2022-08-26 09:04] LABS: TSH Ultra Thyroid Stim Horm 1.87 mcIU/mL (0.34-5.60)
[2022-08-26 09:53] LABS: High Sensitivity Troponin 1 Hr 5 pg/mL (<15)
[2022-08-26] MEDS ORDERED: Metoprolol Tartrate 5 mg VIAL 5 ml VIAL (1 mg/ml) IV ONE (10:30)
[2022-08-26] MEDS ORDERED: Digoxin IV 0.5 MG/2 ML AMP (0.25 MG/ML) IV SLOW PU ONE (11:00)
[2022-08-26] MEDS: Enoxaparin 80 MG/0.8 ML SYR SUBCUT SCH ×2 (12:55→21:25)
[2022-08-26] MEDS ORDERED: Magnesium Sulfate 2 gm BAG 2 GM/50 ML BAG IVPB ONE (14:35)
[2022-08-26] MEDS ORDERED: Potassium Chloride LIQUID 20 MEQ/15 ML LIQUID PO ONE (14:36)
[2022-08-26 15:26] LABS: HDL Cholesterol 72.7 mg/dL
[2022-08-27 06:27] LABS: ABS Basophils 0.1 10^3/ul (0-0.2); ABS Eosinophils 0.1 10^3/ul (0-0.6); ABS Monocytes 0.4 10^3/ul (0-0.8); ABS Neutrophils 4.1 10^3/ul (1.5-7.7); Eosinophil % 1.7 %; Hematocrit 40 % (35-47); Hemoglobin 13.2 g/dL (12.0-16.0); Lymphocyte % 39.1 %; Mean Corpuscular HGB Conc 33 g/dL (31-36); Mean Corpuscular Hemoglobin 29 pg (27-31); Mean Corpuscular Volume 89 fL (80-97); Platelet Count 247 10^3/uL (150-450); Red Blood Count 4.51 10^6 /uL (3.70-4.87); Red Cell Distribution Width 15 % (10-15); White Blood Count 7.7 10^3/uL (3.5-10.8)
[2022-08-27 07:04] LABS: Albumin 4.1 g/dL (3.2-5.2); Albumin/Globulin Ratio 2.1 (1-3); Calcium 9.5 mg/dL (8.6-10.3); Creatinine, Serum 0.67 mg/dL (0.51-0.95); Magnesium 2.2 mg/dL (1.9-2.7); Potassium 4.4 mmol/L (3.5-5.0); Total Bilirubin 0.4 mg/dL (0.2-1.0); Total Protein 6.1 g/dL (6.4-8.9); eGFR CKD-EPI 99.4 (>60)
[2022-08-27] MEDS ORDERED: Pantoprazole VIAL 40 MG VIAL IV SCH (09:00)
[2022-08-27] MEDS: Enoxaparin 80 MG/0.8 ML SYR SUBCUT SCH (09:03)
[2022-08-28 10:58] VITALS: BP 100/68
== END 2022-08-28 10:57 | disposition home or self-care (01) | DRG 201 ==
LOC: ED 07:48 → EDHOLD 11:13 → MEDTELE 16:08
PROVIDERS: ADMIT Surgery Surgical Critical Care; ATTEND Surgery Surgical Critical Care

== ENCOUNTER 2023-11-18 06:46 | Inpatient (IN) ==
[2023-11-18 07:17] LABS: ABS Basophils 0.1 10^3/uL (0.0-0.1); ABS Eosinophils 0.2 10^3/uL (0.0-0.5); ABS Lymphocytes 3.3 10^3/uL (1.0-4.8); ABS Monocytes 0.5 10^3/uL (0.0-0.9); ABS Neutrophils 3.6 10^3/uL (1.5-7.6); ABS Nucleated RBC 0.01 10^3/ul; Eosinophil % 2.1 %; Hematocrit 40.3 % (35-45); Hemoglobin 13.6 g/dL (11.5-14.3); Mean Corpuscular Hemoglobin 30.6 pg (27-33); Mean Corpuscular Hgb Conc 33.9 g/dL (31-36); Mean Corpuscular Volume 90.4 fL (80-97); Mean Platelet Volume 9.5 fL (7.5-11.2); Nucleated Red Blood Cells % 0.1 %/100WBC (0.0-0.8); Platelet Count 247 10^3/uL (150-450); Red Blood Count 4.45 10^6/uL (3.63-4.92); Red Cell Distribution Width 15.4 % (12-17); White Blood Count 7.6 10^3/uL (3.8-11.8)
[2023-11-18 07:27] LABS: INR 0.85 (0.83-1.13)
[2023-11-18] MEDS: Lactated Ringers 1000 ml BAG 1,000 ML IV ONE (07:33)
[2023-11-18 07:55] LABS: Albumin 4.2 g/dL (3.2-5.2); Albumin/Globulin Ratio 1.9 (1-3); Calcium 9.5 mg/dL (8.6-10.3); Creatinine, Serum 0.84 mg/dL (0.51-0.95); Globulin 2.2 g/dL (2-4); Potassium 4.2 mmol/L (3.5-5.0); Total Bilirubin 0.4 mg/dL (0.2-1.0); Total Protein 6.4 g/dL (6.4-8.9)
[2023-11-18] MEDS: dilTIAZem 30 MG TAB PO ONE (08:08)
[2023-11-18 08:46] LABS: High Sensitivity Troponin 1 Hr 4 pg/mL (<15)
[2023-11-18] MEDS: Digoxin IV 0.5 MG/2 ML AMP (0.25 MG/ML) IV SLOW PU ONE ×2 (09:15→17:23)
[2023-11-18] MEDS: NS 0.9% 1000 ml BAG 1,000 ML IV ONE (09:25)
[2023-11-18 11:15] LABS: HDL Cholesterol 93.2 mg/dL; Magnesium 1.9 mg/dL (1.9-2.7)
[2023-11-18 11:29] LABS: TSH Ultra Thyroid Stim Horm 3.2 mcIU/mL (0.34-5.60)
[2023-11-18] MEDS: Magnesium Sulfate 2 gm BAG 2 GM/50 ML BAG IVPB ONE (11:37)
[2023-11-19 06:16] LABS: Calcium 8.7 mg/dL (8.6-10.3); Creatinine, Serum 0.63 mg/dL (0.51-0.95); Magnesium 1.9 mg/dL (1.9-2.7); Potassium 4.3 mmol/L (3.5-5.0); eGFR CKD-EPI 99.6 (>60)
[2023-11-19] MEDS: Magnesium Sulfate 2 gm BAG 2 GM/50 ML BAG IVPB ONE (08:13)
[2023-11-19 12:13] VITALS: BP 113/42
== END 2023-11-19 12:24 | disposition home or self-care (01) | DRG 201 ==
LOC: ED 06:46 → EDHOLD 10:13 → ICU 12:46
PROVIDERS: ADMIT Student in an Organized Health Care Education/Training Program; ATTEND Student in an Organized Health Care Education/Training Program

== ENCOUNTER 2024-04-08 01:09 | Observation (INO) ==
[2024-04-08] MEDS: Metoprolol Tartrate 5 mg VIAL 5 ml VIAL (1 mg/ml) IV ONE ×2 (01:40→02:26)
[2024-04-08] MEDS: Lactated Ringers 1000 ml BAG 1,000 ML IV ONE ×2 (01:40→02:26)
[2024-04-08 01:41] LABS: ABS Basophils 0.1 10^3/uL (0.0-0.1); ABS Eosinophils 0.1 10^3/uL (0.0-0.5); ABS Lymphocytes 3.1 10^3/uL (1.0-4.8); ABS Monocytes 0.5 10^3/uL (0.0-0.9); ABS Neutrophils 4.5 10^3/uL (1.5-7.6); ABS Nucleated RBC 0.01 10^3/ul; Eosinophil % 1.4 %; Hematocrit 39.7 % (35-45); Hemoglobin 13.4 g/dL (11.5-14.3); Lymphocyte % 37.6 %; Mean Corpuscular Hemoglobin 30.3 pg (27-33); Mean Corpuscular Hgb Conc 33.6 g/dL (31-36); Mean Platelet Volume 9.5 fL (7.5-11.2); Nucleated Red Blood Cells % 0.1 %/100WBC (0.0-0.8); Platelet Count 234 10^3/uL (150-450); Red Blood Count 4.41 10^6/uL (3.63-4.92); Red Cell Distribution Width 14.3 % (12-17); White Blood Count 8.3 10^3/uL (3.8-11.8)
[2024-04-08] MEDS: Magnesium Sulfate IV 1GM/100ML 1 GM/100 ML BAG IV ONE ×3 (01:41→11:22)
[2024-04-08 02:05] LABS: INR 0.93 (0.85-1.14)
[2024-04-08 02:24] LABS: Albumin 4.2 g/dL (3.2-5.2); Albumin/Globulin Ratio 2.1 (1-3); Calcium 9.8 mg/dL (8.6-10.3); Creatinine, Serum 0.88 mg/dL (0.51-0.95); Potassium 4.1 mmol/L (3.5-5.0); Total Bilirubin 0.4 mg/dL (0.2-1.0); Total Protein 6.2 g/dL (6.4-8.9); eGFR CKD-EPI 73.8 (>60)
[2024-04-08] MEDS: Digoxin IV 0.5 MG/2 ML AMP (0.25 MG/ML) IV SLOW PU ONE ×3 (03:12→07:21)
[2024-04-08 05:10] LABS: Magnesium 1.7 mg/dL (1.9-2.7)
[2024-04-08 07:28] LABS: TSH Ultra Thyroid Stim Horm 1.82 mcIU/mL (0.34-5.60)
[2024-04-08] MEDS: Lactated Ringers 1000 ml BAG 1,000 ML IV SCH (08:03)
[2024-04-08 11:22] VITALS: BP 97/44
[2024-04-08] MEDS: Pantoprazole VIAL 40 MG VIAL IV SCH (11:23)
[2024-04-08] MEDS ORDERED: Enoxaparin 80 MG/0.8 ML SYR SUBCUT SCH (12:00)
== END 2024-04-08 11:50 | disposition home or self-care (01) ==
LOC: ED 01:09 → EDHOLD 06:15 → INTOOBSV 06:15 → ICU 07:50
PROVIDERS: ADMIT Student in an Organized Health Care Education/Training Program; ATTEND Student in an Organized Health Care Education/Training Program